=== PATIENT | female | born 1965 | race Caucasian/White ===

== ENCOUNTER 2020-07-22 14:05 | Outpatient (CLI) | payer OTHER, SELFPAY ==
--- NOTE | ~2020-07-22 | XR_ITS ---
XR knee RT 3V DATE: 07/22/2020 14:27 INDICATION: Knee pain, burning. No injury TECHNIQUE: AP, lateral, swimmer views COMPARISON: None FINDINGS: There is severe tricompartment osteoarthritis. No fracture or dislocation, periosteal reaction or bone destruction. No radiopaque intra-articular lo ose body or chondrocalcinosis is evident. IMPRESSION: Severe tricompartment osteoarthritis Reviewed, dictated and finalized at location A.
--- NOTE | ~2020-07-22 | XR_ITS ---
XR lumbar spine 2-3V DATE: 07/22/2020 14:27 INDICATION: Low back pain, chronic. Back spasms. TECHNIQUE: AP, lateral, coned lateral lumbosacral view COMPARISON: None FINDINGS: There is degenerative spurring at T11 and T11-12. There is prominent degenerative disc disease at L1-2, L4-5 and L5-S1. No fracture or spondylolisthesis or bone destruction. The included lower thoracic and lumbar pedicles are intact. The sacroiliac joints appear normal. IMPRESSION: Multilevel degenerative disc disease of the lower thoracic and lumbar spine Reviewed, dictated and finalized at location A. IMPRESSION: Multilevel degenerative disc disease of the lower thoracic and lumb ar spine
== END 2020-07-22 14:06 | disposition home or self-care (01) ==
LOC: ANHIMG 14:10
PROVIDERS: Visit Provider Internal Medicine
DX: R10.9 Unspecified abdominal pain (principal); M17.11 Unilateral primary osteoarthritis, right knee; M51.36 Other intervertebral disc degeneration, lumbar region; M51.34 Other intervertebral disc degeneration, thoracic region
CPT/HCPCS: 72100; 73562

== ENCOUNTER 2020-08-05 09:20 | Outpatient (CLI) | payer OTHER, SELFPAY ==
--- NOTE | ~2020-08-05 | US_ITS ---
EXAMINATION: US soft tissue abdomen DATE: 08/05/2020 10:07 INDICATION: Right lower quadrant anterior abdominal wall pain. TECHNIQUE: Multiple grayscale and Doppler ultrasound images of the region of concern at the anterior wall of the right lower quadrant of the abdomen were obtained. COMPARISON: None FINDINGS: Gas-filled peristalsing bowel is seen deep to the intact appearing anterior abdominal wall at the reg ion of concern. No evident hernia or other abnormal masses or fluid collections. IMPRESSION: 1. No etiology identified for right lower quadrant abdominal wall pain with no evident hernia, abnorm al masses or fluid collections. Reviewed, dictated and finalized at location A. IMPRESSION: 1. No etiology identified for right lower quadrant abdominal wall pain with no evident hernia, abnormal masses or fluid collections.
== END 2020-08-05 09:21 | disposition home or self-care (01) ==
PROVIDERS: PCP Internal Medicine; Visit Provider Internal Medicine
DX: R10.9 Unspecified abdominal pain (principal); M25.561 Pain in right knee; M54.5 Low back pain
CPT/HCPCS: 76705

== ENCOUNTER 2021-04-08 15:58 | Outpatient (CLI) | payer OTHER, SELFPAY ==
--- NOTE | ~2021-04-08 | MM_ITS ---
EXAMINATION: MM screening marleny BI w jass HISTORY: Screening mammogram, family history of breast cancer in her sister. TECHNIQUE: Craniocaudal and mediolateral oblique 3-D tomosynthesis images were obtained and synthetic 2-D images were generated. CAD analysis was submitted and interpreted. COMPARISON: 09/03/2016, 08/30/2012, 01/14/2011 BREAST PARENCHYMAL COMPOSITION: There are scattered areas of fibroglandular density. FINDINGS: There is no evidence of suspicious mass, calcification, or architectural distortion to sugg est malignancy in either breast. There has been no suspicious interval change. IMPRESSION: 1. No mammographic evidence of malignancy. 2. Recommend routine screening mammography in one year. BI-RADS Category 1: Negative Reviewed, dictated and finalized at location A. GENERALIST
== END 2021-04-08 15:59 | disposition home or self-care (01) ==
LOC: ANHIMG 16:00
PROVIDERS: PCP Internal Medicine; Visit Provider Physician Assistant
DX: Z12.31 Encounter for screening mammogram for malignant neoplasm of breast (principal)
CPT/HCPCS: 77063; 77067

== ENCOUNTER 2023-08-12 12:54 | Outpatient (CLI) | payer OTHER, SELFPAY ==
--- NOTE | ~2023-08-12 | MM_ITS ---
EXAMINATION: MM screening marleny BI w jass HISTORY: Screening mammogram, family history of breast cancer in her sister. TECHNIQUE: Craniocaudal and mediolateral oblique 3-D tomosynthesis images were obtained and synthetic 2-D images were generated. CAD analysis was submitted and interpreted. COMPARISON: 04/08/2021, 09/03/2016 BREAST PARENCHYMAL COMPOSITION:Not Dense. The breasts are almost entirely fatty FINDINGS: No suspicious mass, calcification, or architectural distortion are identified in either jackeline ast to suggest malignancy. There has been no suspicious interval change. IMPRESSION: No mammographic evidence of malignancy. Recommend routine screening mammography in one year. BI-RADS Category 1: Negative Reviewed, dictated and finalized at location .
== END 2023-08-12 12:55 | disposition home or self-care (01) ==
LOC: ANHIMG 12:55
PROVIDERS: PCP Internal Medicine Gastroenterology; Visit Provider Internal Medicine Gastroenterology
DX: Z12.31 Encounter for screening mammogram for malignant neoplasm of breast (principal)
CPT/HCPCS: 77063; 77067

== ENCOUNTER 2024-02-27 15:15 | Outpatient (CLI) | payer OTHER, SELFPAY ==
--- NOTE | ~2024-02-27 | XR_ITS ---
EXAMINATION:XR_CERV2-3V_CR DATE: 02/27/2024 15:38 INDICATION: Anesthesia of skin. Heaviness and numbness in both arms. TECHNIQUE: AP, lateral, lateral swimmers and odontoid views of the cervical spine are provided. COMPARISON: None FINDINGS: Alignment is normal. Odontoid is intact. Normal atlantoaxial interval. Vertebral body heights are no rmal. Disc spaces are normal. Multilevel mild cervical uncovertebral and facet osteoarthritis. Prever tebral soft tissues are normal. IMPRESSION: 1. Cervical facet and uncovertebral osteoarthritis. Reviewed, dictated and finalized at location A. 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
== END 2024-02-27 15:16 | disposition home or self-care (01) ==
LOC: ANHIMG 15:27
PROVIDERS: PCP Internal Medicine Gastroenterology; Visit Provider Internal Medicine Gastroenterology
DX: R20.0 Anesthesia of skin (principal); M50.30 Other cervical disc degeneration, unspecified cervical region
CPT/HCPCS: 72040

== ENCOUNTER 2024-05-22 17:07 | Outpatient (CLI) | payer OTHER, SELFPAY ==
--- NOTE | ~2024-05-22 | XR_ITS ---
Left Knee Technique: AP, lateral, and sunrise views were obtained. Clinical History: Pain Findings: No fracture or dislocation is seen. There is advanced tricompartmental osteoarthritis, with extensive osteophyte formation.. Soft tissues are unremarkable. No joint effusion is seen. Impression: Severe tricompartmental osteoarthritis. Reviewed, dictated and finalized at location . Impression: Severe tricompartmental osteoarthritis.
--- OUTSIDE RECORDS SUMMARY | 2024-05-22 17:10 | XMS_ITS | Patient Health Record ---
[facility] Organization [facility] Address [address] [place] [address] Care Team Providers Care Telephone Sex Worker Name Role Phone Nereyda Johnson Primary Care Provider Reason For Referral No Information Plan Of Treatment No Information Insurance Providers Payer Name Payer Address Payer Phone Subscriber Number Group Number Insured Name Patient Relationship to Insured Coverage Start Date Coverage End Date [facility] [address] [place] [phone] [id number] Cathy Haynes Self - patient is the insured 4
--- OUTSIDE RECORDS SUMMARY | 2024-05-22 17:10 | XMS_ITS ---
Author Name [facility] Address [address], [place] Phone Organization [facility] Address [address] [place] [address] Phone Care Team Providers Care Extrusion Press Supervisor Name Role Phone [facility] Unavailable [phone] BRANDON NOEL Unavailable ALLERGIES, ADVERSE REACTIONS AND ALERTS Allergy Name Allergy Date Allergy Status Allergy Severity Allergy Reaction Codeine, [RxNorm: 2670] 09/22/2022 Current Dilantin, [RxNorm: 925561] 09/01/2023 Current MEDICATIONS RxNorm Brand Name Prescription Ordered Value Order Unit Start Date Date Status Fill Status Indications [id number] Zyrtec 10 mg tablet SIG: Zyrtec 10 mg oral tablet, 30 days, Dispense #30 Tablet, 0 RefillsDirect ions: Take 1 oral tablet once a day 30 tablet 2022 023 Historic [id number] olopatad ine 0.1 % drops SIG: olopatadine 0.1 % ophthalmic (eye) drops, 5 days, Dispense #10 Milliliter, 0 RefillsDirect ions: 1 drop both eyes BID 10 drops 2022 023 Historic [id number] cromolyn 4 % drops SIG: cromolyn 4 % ophthalmic (eye) drops, 7 days, Dispense #10 Milliliter, 0 RefillsDirect ions: 2 drops 4-6 times a day 10 drops 2022 023 Historic PROBLEMS Problem Code Problem Description Problem Status Problem Da te Problem End Date [id number] cristin disorder Hypertensive disorder Current 09/22/2022 [id number]-Casedeck claudine Hysterectomy Current 09/22/2022 [id number]-Rfclhkwm Migraine Current 09/01/2023 [id number]-Ilvu reflux Acid reflux Current 09/01/2023 PROCEDURES Procedure Description Date Notes NO PROCEDURES PERFORMED ASSESSMENTS Assessment None PLAN OF TREATMENT Assessment Planned Activity LOINC Planned Martin e None CONSULTATION NOTE Note Author Date None HISTORY AND PHYSICAL NOTE Note Author Date None PROGRESS NOTE Note Author Date None DISCHARGE SUMMARY Note Author Date None CHIEF COMPLAINT AND REASON FOR VISIT FUNCTIONAL STATUS Functional or Cognitive Find ing None MENTAL STATUS Cognitive Finding None ENCOUNTERS Encounter Type Provider Diagnoses Start Date Location None SOCIAL HISTORY Social Status Observation Never Smoker Sex:Female CARE TEAM INFORMATION Extrusion Press Supervisor Provider ID Role Location Phone [facility] [address] [place], [place] BRANDON NOEL [phone] NURSE PRACTITIONER [address], [place] [address]
--- OUTSIDE RECORDS SUMMARY | 2024-05-22 17:11 | XMS_ITS | CONTINUITY OF CARE DOCUMENT ---
Author Name sonny dennis Address Unknown Organization [facility] Address [address] [place] [address] [address] [place] [address] Phone [phone] Care Team Providers Care Sleeping Car Service Attendant Name Role Phone Jewel Winchester MD Unavailable Jewel Winchester MD Unavailable INSURANCE PROVIDERS Payer name Policy type / Coverage type [employer] MED[employer] Medicaid [id number]
--- OUTSIDE RECORDS SUMMARY | 2024-05-22 17:11 | XMS_ITS | Clinical Summary ---
Author Organization [facility] Address [address] [place] [address] Care Team Providers Care Spd Tech Name Role Phone Unavailable Primary Care Provider Unavailabl e Social History Tobacco Use Types Packs/Day Years Used Date Smoking Tobacco: Never Assessed Comments Unknown Sex and Gender Information Value Date Recorded Sex Assigned at Not on file Legal Sex Female 8:01 PM CDT Gender Identity Not on file Sexual Orientation Not on file Plan of Treatment Health Maintenance Due Date Last Done Comments Cervical Cancer Screening Pa p Smear (Age 30 to 64) Every 3 Years 1966 Colorectal Cancer Screening Colonoscopy (10 Years) 1966 Annual Physical 1969 Hepatitis C 1984 DTaP, Tdap and Td Vaccines ( 1 - Tdap) 1985 Hepatitis B Vaccines (1 of 3 - 19+ 3-dose series) 1985 Cervical Cancer Screening Pa p with HPV Testing (Age 30 to 64) Every 5 Years 1996 Cervical Cancer Screening with HPV 1996 Mammogram Screening 2006 Zoster Vaccines (1 of 2) 2016 COVID-19 Vaccine (2023-2 5 season) 2023 Meningococcal B Vaccine Aged Out No l onger eligible based on patient's age to complete this topic Meningococcal Vaccine Aged Out No izabela vickie eligible based on patient's age to complete this topic Pneumococcal Vaccine: Pediat rics (0 to 5 Years) and At-Risk Patients (6 to 49 Years) Aged Out No longer eligible b ased on patient's age to complete this topic RSV Immunizations Under 20 Months Aged Out No longer eligible based on patient's age to complete this topic
--- OUTSIDE RECORDS SUMMARY | 2024-05-22 17:11 | XMS_ITS ---
Author Organization [facility] Address [address] [place] [address] Care Team Providers Care Chain Maker Machine Name Role Phone Nereyda Johnson Primary Care Provider REASON FOR VISIT est care Encounters Encounter Location Date Provider Diagnosis [address] [place] [address] 10/31/2023 Nereyda Johnson Plan Of Treatment No Information Progress Notes * Melissa GORMANOB: 7 (59 yo F)Acc No.[id number]:10/31/2023 UNLOCKED PROGRESS NOTE Progress Notes Patient: Cathy SHARPE Provider: Shayan Johnson APRN :1965 A ge:58 Y S ex:Female Date:10/31/2023 Address:[address] [place], [place] [id number] Subjective: * Chief Complaints: * 1 . Est care. * Medical History: Objective: * Vitals: Assessment: Plan: * Treatment: * * Electronic signature of Colleen Johnson [id number] on 05/22/2024 at 05:10 PM CDT Sign off status: Pending * Provider: Shayan Johnson APRN Date: 0 10/31/2023 Generated for Jackson painting/Yi/Marleenitting on: 0 05/22/2024 05:10 PM CDT
--- OUTSIDE RECORDS SUMMARY | 2024-05-22 17:11 | XMS_ITS ---
Author Organization [facility] Address [address] [place] [address] Care Team Providers Care Senior Research Manager Name Role Phone Nereyda Johnson Primary Care Provider REASON FOR VISIT New patient Encounters Encounter Location Date Provider Diagnosis [address] [place] [address] 11/01/2023 Nereyda Johnson Plan Of Treatment No Information Progress Notes * Melissa GORMANOB: 7 (59 yo F)Acc No.[id number]:11/01/2023 UNLOCKED PROGRESS NOTE Progress Notes Patient: Cathy SHARPE Provider: Shayan Johnson APRN :1965 A ge:58 Y S ex:Female Date:11/01/2023 Address:[address] [place], [place] [id number] Subjective: * Chief Complaints: * 1 . New patient. * Medical History: Objective: * Vitals: Assessment: Plan: * Treatment: * * Electronic signature of Colleen Johnson [id number] on 05/22/2024 at 05:10 PM CDT Sign off status: Pending * Provider: Shayan Johnson APRN Date: 11/01/2023 Generated for Jackson painting/Yi/Marleenitting on: 0 05/22/2024 05:10 PM CDT
== END 2024-05-22 17:08 | disposition home or self-care (01) ==
PROVIDERS: PCP Internal Medicine Gastroenterology; Visit Provider Internal Medicine Gastroenterology
DX: M17.12 Unilateral primary osteoarthritis, left knee (principal)
CPT/HCPCS: 73562